=== PATIENT | female | born 1950 | race Caucasian/White ===

== ENCOUNTER 2018-01-14 11:30 | Emergency (ER) | payer OTHER ==
[~2018-01-14] VITALS: Ht 170.2 cm; Wt 81.6 kg
[~2018-01-14 11:30] MED LIST: CALTRATE 600600 MG; COZAAR50 MG; ZYRTEC10 M3
== END 2018-01-14 14:10 | disposition home or self-care (01) ==
LOC: ER 11:30
DX: M25.561 Pain in right knee (principal)

== ENCOUNTER → 2018-05-14 | Outpatient (CLI) | payer OTHER | END | disposition home or self-care (01) | LOC: NUCLEAR 08:30 | DX: M19.90 Unspecified osteoarthritis, unspecified site (principal) | CPT/HCPCS: 78315; A9503 ==

== ENCOUNTER 2024-03-24 07:49 | Emergency (ER) | payer OTHER ==
[~2024-03-24] VITALS: Ht 170.2 cm; Wt 81.6 kg
[2024-03-24 08:00] VITALS: BP 116/66; O2SAT 97
[2024-03-24] MEDS ORDERED: ACETAMINOPHEN 500 MG GEL..CAP PO ONE ×2 (09:00→09:11)
[2024-03-24] MEDS ORDERED: BENZONATATE 100 MG CAPSULE PO ONE (09:00)
[2024-03-24 09:13] LABS: HEMATOCRIT 41.9 % (36.0-45.00); HEMOGLOBIN 13.9 g/dL (12.0-15.00); MEAN CELL VOLUME 90.3 fL (80.00-100.00); MEAN CORPUSCULAR HGB CONC 33.2 g/dl (32.0-36.0); PLATELET COUNT 251 K/uL (150-450); RED BLOOD COUNT 4.64 M/uL (4.00-6.00); RED CELL DISTRIBUTION WIDTH 13.4 % (11.5-14.5)
[2024-03-24 09:41] LABS: CALCIUM 10.1 mg/dL (8.5-10.1); CREATININE SERUM 0.84 mg/dL (0.55-1.02); GFR 66.28; POTASSIUM 4.37 mEq/L (3.5-5.1)
[2024-03-24] MEDS ORDERED: ALL DAY ALLERGY10 M3 PO (10:21)
[2024-03-24] MEDS ORDERED: SINGULAIR10 MG PO (10:21)
[2024-03-24] MEDS ORDERED: BENZONATATE200 M1 PO (10:21)
[2024-03-24] MEDS ORDERED: AMOX1TAB5 PO (10:21)
== END 2024-03-24 11:07 | disposition home or self-care (01) ==
LOC: ER 07:51
PROVIDERS: General Practice
DX: J10.1 Influenza due to other identified influenza virus with other respiratory manifestations (principal); R05.8 Other specified cough; Z88.8 Allergy status to other drugs, medicaments and biological substances; Z20.822 Contact with and (suspected) exposure to COVID-19